=== PATIENT | male | born 1950 | race Caucasian/White ===

== ENCOUNTER 2024-11-20 07:43 | Emergency (ER) | payer MEDICAID, OTHER ==
--- OUTSIDE RECORDS SUMMARY | 2024-11-20 07:48 | XMS REPORT | Continuity of Care Document ---
Author Name Unknown Address [address] [facility] [address] [place] [address] [facility] [place] Address [address] [facility] [address] [place] [address] Care Team Providers Care Senior Art Director Name Role Phone ANDREWAUSTYN Uriostegui Attending Clinician Unavailable SABIHA SCHWAB Attending Clinician Unavailable LAB90 Attending Clinician Unavailable YOLIS ARRINGTON Attending Clinician FAUSTO Godfrey Attending Clinician Unavailable LANE CAMPOS Attending Clinician UnavailSOCRATES Rey Attending Clinician Unavailable JAVI MORRIS Attending Clinician UnavailCHAD Schneider Attending Clinician JORDAN Hester Attending Clinician UnavailMIRANDA Bone Attending Clinician Sugey Jim, HENOK Attending Clinician Unavailable HILTON VO Attending Clinician Unavailable Payers Payer Name Policy Type Policy Number Effective Date Expirati on Date Source [facility] 7 [id number] 2024 00:00:00 Problems Condition Name Condition Details Condition Category Status Onset Date Resolution Date Last Treatment Date Treating Clinician Comments Source Type 2 diabetes mellitus with diabetic neuropathy Type 2 diabetes mellitus with diabetic neuropathy Disease Active 07-31 00:00: 00 Victoria uriostegui Hormone replacemen t therapy (HRT) Hormone replacemen t therapy (HRT) Disease Active 07-30 00:00: 00 Victoria uriostegui Aortic atheroscle rosis Aortic atheroscle rosis Disease Active 04-18 00:00: 00 Victoria Carroll Externa gila Primary hypertensi on Primary hypertensi on Disease Active 04-18 00:00: 00 Victoria Carroll Externa gila Coronary artery disease Coronary artery disease Disease Active 04-15 00:00: 00 Victoria Carroll Externa gila 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 2 with diabetic mixed hyperlipid emia (multi HCC) Disease Active 03-27 00:00: 00 Victoria Carroll Externa gila Type 2 diabetes mellitus with product lister y disorder, without long-term current use of insulin Type 2 diabetes mellitus with product lister y disorder, without long-term current use of insulin Disease Active 03-27 00:00: 00 Victoria Carroll Externa gila DM type 2 with diabetic mixed hyperlipid emia DM type 2 with diabetic mixed hyperlipid emia Disease Active 03-23 00:00: 00 Victoria Carroll Externa gila Type 2 diabetes mellitus with diabetic peripheral angiopathy without gangrene, without long-term current use of insulin Type 2 diabetes mellitus with diabetic peripheral angiopathy without gangrene, without long-term current use of insulin Disease Active 03-23 00:00: 00 Victoria Carroll Externa gila Hyperlipid emia Hyperlipid emia Disease Active 03-23 00:00: 00 Victoria Carroll Externa gila Repeated falls Repeated falls Disease Active 03-22 00:00: 00 Victoria Carroll Externa gila PVD (periphera l vascular disease) PVD (periphera l vascular disease) Disease Active 03-15 00:00: 00 Victoria Nevarez - Externa gila Peripheral neuralgia Peripheral neuralgia Disease Active 03-14 00:00: 00 Victoria Nevarez - Externa gila [id number] 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 Problem [facility] [id number] Metabolic syndrome Problem [facility] [id number] Hypogonado tropic hypogonadi sm Problem [facility] [id number] Hypogonadi sm in male Problem [facility] 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 Disease Resolve d 03-23 00:00: 00 2024-11-19 00:00:00 2024-11-19 10:32:12 Victoria Cottonold - Externa l Elevated BP without diagnosis of hypertensi on Elevated BP without diagnosis of hypertensi on Disease Resolve d 03-23 00:00: 00 2024-11-19 00:00:00 2024-11-19 09:14:42 Victoria Cottonold - Externa l At risk for falls At risk for falls Disease Resolve d 03-22 00:00: 00 2023-07-31 00:00:00 2023-07-31 06:39:26 Victoria Cottonold - Externa l Social History Social Habit Start Date Stop Date Quantity Comments Source Gender identity Julianne Nevarez - External Sexual orientation Jordan Nevarez - External History of tobacco use Passive smoker Victoria beyer - External Sex Assigned At [facility] Alcoholic beverage intake 2024-11-19 00:00:00 2024-11-19 00:00:00 Lifetime non-drinker (finding) Victoria Nevarez - External Cigarettes smoked current (pack per day) - Reported 2023-07-31 00:00:00 2023-07-31 00:00:00 Victoria Nevarez - External Cigarette pack-years 2023-07-31 00:00:00 2023-07-31 00:00:00 Victoria Nevarez - External Alcohol intake 2022-12-18 00:00:00 2022-12-18 00:00:00 Lifetime non-drinker (finding) Victoria Nevarez - External History of Social function 2022-09-14 00:00:00 2022-09-14 00:00:00 Victoria Nevarez - External Sex 2022-01-31 11:33:56 2022-01-31 11:33:56 Male (finding) Victoria Nevarez - External Smoking Status Start Date Stop Date Source Ex-smoker 2023-07-31 00:00:00 2023-07-31 00:00:00 Jordan Daniels Medications Ordered Medication Name Filled Medication Name Start Date Stop Date Current Medication? Ordering Clinician Indication Dosage Frequency Signature (SIG) Comments Components Source Aspirin 81 MG oral Tablet Delayed Response Aspirin 81 MG oral Tablet Delayed Response 11-19 09:09: 12 Yes [id number] 81mg QD Take 1 tablet (81 mg total) by mouth daily. Victoria uriostegui Gabapentin 100 MG oral Capsule Gabapentin 100 MG oral Capsule 11-19 00:00: 00 Yes [id number] 9106 100mg Q.[id number] 3D Take 1 capsule (100 mg total) by mouth 3 times daily. Victoria uriostegui Aspirin 81 MG oral Tablet Delayed Response 07-30 08:13: 23 Yes [id number] 81mg QD Take 1 tablet (81 mg total) by mouth daily. Victoria uriostegui Lisinopril 5 MG oral Tablet Lisinopril 5 MG oral Tablet 07-02 00:00: 00 Yes [id number] 5mg QD Take 1 tablet by mouth once daily Victoria uriostegui Anastrozole 1 MG Anastrozole 1 MG 2023-02 00:00: 00 No Anastrozol e 1 MG Anastrozole 1 MG oral Tablet Anastrozole 1 MG oral Tablet 09-18 00:00: 00 Yes Victoria uriostegui CLOMIPHENE CITRATE OR 07-30 07:54: 45 07-30 00:00 :00 No 25mg Take 25 mg by mouth daily. Victoria uriostegui Atorvastati n Calcium 40 MG oral Tablet Atorvastati n Calcium 40 MG oral Tablet 07-30 00:00: 00 Yes [id number] 40mg QD Take 1 tablet (40 mg total) by mouth nightly. Victoria uriostegui CLOMIPHENE CITRATE OR 2022-02 09:16: 14 Yes 25mg Take 25 mg by mouth daily. Victoria uriostegui clomiPHENE Citrate 50 MG oral Tablet clomiPHENE Citrate 50 MG oral Tablet 11-23 00:00: 00 Yes in the morning. Victoria uriostegui Glucose Blood in vitro Strip 06-15 00:00: 00 Yes [id number] 1{each} 1 each by other route daily Check BS QID and as needed STRIPS NEED TO BE ONE TOUCH Victoria uriostegui Glucose Blood in vitro Strip Glucose Blood in vitro Strip 06-15 00:00: 00 11-19 00:00 :00 No [id number] 1{each} QD 1 each by other route daily Check BS QID and as needed STRIPS NEED TO BE ONE TOUCH Victoria uriostegui Atorvastati n Calcium 40 MG oral Tablet 06-15 00:00: 00 07-30 00:00 :00 No [id number] 40mg Take 1 tablet (40 mg total) by mouth nightly Victoria uriostegui Lisinopril 5 MG oral Tablet 05-16 00:00: 00 Yes [id number] 5mg QD Take 1 tablet (5 mg total) by mouth daily Victoria uriostegui Lisinopril 5 MG oral Tablet 04-17 00:00: 00 Yes [id number] Take 1 tablet by mouth once daily Victoria uriostegui Metformin HCl 500 MG oral Tablet 04-02 00:00: 00 04-18 00:00 :00 No [id number] 1000mg Take 2 tablets (1,000 mg total) by mouth in the morning and 2 tablets (1,000 mg total) in the evening. Take with meals. iVctoria uriostegui Tirzepatide (Mounjaro) 2.5 MG/0.5ML subcutaneou s Solution Pen-injecto r 03-21 00:00: 00 Yes [id number] 2.5mg Inject 0.5 mL (2.5 mg total) into the skin once a week Victoria uriostegui Lisinopril 5 MG oral Tablet 03-21 00:00: 00 Yes [id number] 5mg Take 1 tablet (5 mg total) by mouth daily Victoria uriostegui Atorvastati n Calcium 40 MG oral Tablet 03-21 00:00: 00 06-15 00:00 :00 No [id number] 40mg Take 1 tablet (40 mg total) by mouth nightly Victoria Nevarez - Externa l Glucose Blood in vitro Strip 03-14 00:00: 00 06-15 00:00 :00 No [id number] 1{each} 1 each by other route daily Check BS QID and as needed Victoria Nevarez - Externa l Vital Signs Vital Name Observation Time Observation Value Comments S ource Systolic blood pressure 2024-11-19 09:05:00 104 mm[Hg] Victoria Seybo ld - External Diastolic blood pressure 2024-11-19 09:05:00 78 mm[Hg] Victoria Seybo ld - External Heart rate 2024-11-19 09:05:00 74 /min Kelse y Seybold - External Body temperature 2024-11-19 09:05:00 37.17 Marybel Victoria Seybold - External Respiratory rate 2024-11-19 09:05:00 18 /min Victoria Seybold - External Body height 2024-11-19 09:05:00 174 cm Julianne ey Seybold - External Body weight 2024-11-19 09:05:00 99.791 kg Julianne ey Seybold - External BMI 2024-11-19 09:05:00 32.96 kg/m2 Julianne ey Seybold - External Oxygen saturation in Arterial blood by Pulse oximetry 2024-11-19 09:05:00 95 /min Victoria Sabillonybo ld - External Systolic blood pressure 2024-07-30 12:49:00 110 mm[Hg] Victoria Seybo ld - External Diastolic blood pressure 2024-07-30 12:49:00 70 mm[Hg] Victoria Seybo ld - External Heart rate 2024-07-30 12:49:00 74 /min Kelse y Seybold - External Body temperature 2024-07-30 12:49:00 36.22 Marybel Victoria Seybold - External Respiratory rate 2024-07-30 12:49:00 15 /min Victoria Seybold - External Body height 2024-07-30 12:49:00 174 cm Julianne ey Seybold - External Body weight 2024-07-30 12:49:00 98.431 kg Julianne ey Seybold - External BMI 2024-07-30 12:49:00 32.51 kg/m2 Julianne ey Seybold - External Oxygen saturation in Arterial blood by Pulse oximetry 2024-07-30 12:49:00 95 /min Victoria Sabillonybo ld - External height 2024-06-18 09:00:00 71 [in_i] Commo n [facility] weight 2024-06-18 09:00:00 223 [lb_av] Comm on [facility] bmi 2024-06-18 09:00:00 31[facility]1 [facility] blood pressure systolic 2024-06-18 09:00:00 168 mm[Hg] [facility] blood pressure diastolic 2024-06-18 09:00:00 86 mm[Hg] [facility] Systolic blood pressure 2024-01-30 13:51:00 118 mm[Hg] Victoria Seybo ld - External Diastolic blood pressure 2024-01-30 13:51:00 64 mm[Hg] Victoria Seybo ld - External Heart rate 2024-01-30 13:51:00 73 /min Kel y Seybold - External Body temperature 2024-01-30 13:51:00 36.39 Marybel Victoria Seybold - External Respiratory rate 2024-01-30 13:51:00 15 /min Victoria Seybold - External Body height 2024-01-30 13:51:00 174 cm Julianne ey Seybold - External Body weight 2024-01-30 13:51:00 95.255 kg Julianne ey Seybold - External BMI 2024-01-30 13:51:00 31.47 kg/m2 Julianne ey Seybold - External height 2023-12-19 08:15:00 71 [in_i] Commo n [facility] weight 2023-12-19 08:15:00 217.8 [lb_av] Co mmon [facility] temperature 2023-12-19 08:15:00 98.1 [degF] Com mon [facility] bmi 2023-12-19 08:15:00 30.37 kg/m2 Comm on [facility] oximetry 2023-12-19 08:15:00 97 % Commo n [facility] respiratory rate 2023-12-19 08:15:00 18 /min [facility] blood pressure systolic 2023-12-19 08:15:00 134 mm[Hg] [facility] blood pressure diastolic 2023-12-19 08:15:00 74 mm[Hg] [facility] height 2023-09-19 08:00:00 71 [in_i] Commo n [facility] weight 2023-09-19 08:00:00 217 [lb_av] Comm on [facility] temperature 2023-09-19 08:00:00 97.6 [degF] Com mon [facility] bmi 2023-09-19 08:00:00 30.26 kg/m2 Comm on [facility] oximetry 2023-09-19 08:00:00 93 % Commo n [facility] respiratory rate 2023-09-19 08:00:00 18 /min [facility] blood pressure systolic 2023-09-19 08:00:00 140 mm[Hg] [facility] blood pressure diastolic 2023-09-19 08:00:00 68 mm[Hg] [facility] Systolic blood pressure 2023-07-31 12:49:00 122 mm[Hg] Victoria Espana ld - External Diastolic blood pressure 2023-07-31 12:49:00 70 mm[Hg] Victoria Espana ld - External Heart rate 2023-07-31 12:49:00 70 /min Luis Nevarez - External Body temperature 2023-07-31 12:49:00 36.06 Marybel Victoria Sabillonybold - External Respiratory rate 2023-07-31 12:49:00 15 /min Victoria Seybold - External Body height 2023-07-31 12:49:00 174 cm Julianne ey Seybold - External Body weight 2023-07-31 12:49:00 93.895 kg Julianne ey Seybold - External BMI 2023-07-31 12:49:00 31.02 kg/m2 Julianne ey Seybold - External Systolic blood pressure 2023-06-19 12:51:00 115 mm[Hg] Victoria Seybo ld - External Diastolic blood pressure 2023-06-19 12:51:00 54 mm[Hg] Victoria Seybo ld - External Heart rate 2023-06-19 12:51:00 64 /min Kelse y Seybold - External Body temperature 2023-06-19 12:51:00 36.44 Marybel Victoria Seybold - External Respiratory rate 2023-06-19 12:51:00 15 /min Victoria Seybold - External Body height 2023-06-19 12:51:00 180.3 cm Julianne ey Seybold - External Body weight 2023-06-19 12:51:00 92.987 kg Julianne ey Seybold - External BMI 2023-06-19 12:51:00 28.59 kg/m2 Julianne ey Seybold - External height 2023-02-13 11:00:00 71 [in_i] Commo n [facility] weight 2023-02-13 11:00:00 208.9 [lb_av] Co mmon [facility] temperature 2023-02-13 11:00:00 98.1 [degF] Com mon [facility] bmi 2023-02-13 11:00:00 29.13 kg/m2 Comm on [facility] oximetry 2023-02-13 11:00:00 97 % Commo n [facility] respiratory rate 2023-02-13 11:00:00 18 /min [facility] blood pressure systolic 2023-02-13 11:00:00 122 mm[Hg] [facility] blood pressure diastolic 2023-02-13 11:00:00 68 mm[Hg] [facility] Systolic blood pressure 2022-12-18 13:54:00 124 mm[Hg] Victoria Seybo ld - External Diastolic blood pressure 2022-12-18 13:54:00 60 mm[Hg] Victoria Seybo ld - External Heart rate 2022-12-18 13:54:00 89 /min Kel y Seybold - External Body temperature 2022-12-18 13:54:00 36.06 Marybel Victoria Seybold - External Respiratory rate 2022-12-18 13:54:00 14 /min Victoria Seybold - External Body height 2022-12-18 13:54:00 180.3 cm Julianne ey Seybold - External Body weight 2022-12-18 13:54:00 90.719 kg Julianne ey Seybold - External BMI 2022-12-18 13:54:00 27.89 kg/m2 Julianne ey Seybold - External height 2022-11-23 09:15:00 71 [in_i] Commo n [facility] weight 2022-11-23 09:15:00 211.4 [lb_av] Co mmon [facility] temperature 2022-11-23 09:15:00 98.2 [degF] Com mon [facility] bmi 2022-11-23 09:15:00 29.48 kg/m2 Comm on [facility] oximetry 2022-11-23 09:15:00 97 % Commo n [facility] respiratory rate 2022-11-23 09:15:00 18 /min [facility] blood pressure systolic 2022-11-23 09:15:00 123 mm[Hg] [facility] blood pressure diastolic 2022-11-23 09:15:00 68 mm[Hg] [facility] Systolic blood pressure 2022-09-14 12:49:00 102 mm[Hg] Victoria Seybo ld - External Diastolic blood pressure 2022-09-14 12:49:00 72 mm[Hg] Victoria Seybo ld - External Heart rate 2022-09-14 12:49:00 75 /min Kelse y Seybold - External Body temperature 2022-09-14 12:49:00 35.33 Marybel Victoria Seybold - External Respiratory rate 2022-09-14 12:49:00 20 /min Victoria Seybold - External Body height 2022-09-14 12:49:00 180.3 cm Julianne ey Seybold - External Body weight 2022-09-14 12:49:00 95.255 kg Julianne ey Seybold - External BMI 2022-09-14 12:49:00 29.29 kg/m2 Julianne ey Seybold - External Oxygen saturation in Arterial blood by Pulse oximetry 2022-09-14 12:49:00 97 /min Victoria Seybo ld - External Systolic blood pressure 2022-06-15 14:33:00 108 mm[Hg] Victoria Seybo ld - External Diastolic blood pressure 2022-06-15 14:33:00 54 mm[Hg] Victoria Seybo ld - External Heart rate 2022-06-15 14:33:00 74 /min Kelse y Seybold - External Body temperature 2022-06-15 14:33:00 35.67 Marybel Victoria Seybold - External Respiratory rate 2022-06-15 14:33:00 15 /min Victoria Seybold - External Body height 2022-06-15 14:33:00 180.3 cm Julianne ey Seybold - External Body weight 2022-06-15 14:33:00 103.874 kg Julianne ey Seybold - External BMI 2022-06-15 14:33:00 31.94 kg/m2 Julianne ey Seybold - External Systolic blood pressure 2022-04-18 15:23:00 110 mm[Hg] Victoria Seybo ld - External Diastolic blood pressure 2022-04-18 15:23:00 52 mm[Hg] Victoria Seybo ld - External Heart rate 2022-04-18 15:23:00 74 /min Kelse y Seybold - External Body temperature 2022-04-18 15:23:00 36.28 Marybel Victoria Seybold - External Respiratory rate 2022-04-18 15:23:00 16 /min Victoria Seybold - External Body height 2022-04-18 15:23:00 180.3 cm Julianne ey Seybold - External Body weight 2022-04-18 15:23:00 108.41 kg Julianne ey Seybold - External BMI 2022-04-18 15:23:00 33.33 kg/m2 Julianne ey Seybold - External Systolic blood pressure 2022-03-21 19:50:00 140 mm[Hg] Victoria Seybo ld - External Diastolic blood pressure 2022-03-21 19:50:00 68 mm[Hg] Victoria Seybo ld - External Heart rate 2022-03-21 18:50:00 70 /min Kelse y Seybold - External Body temperature 2022-03-21 18:50:00 36.33 Marybel Victoria Seybold - External Respiratory rate 2022-03-21 18:50:00 16 /min Victoria Seybold - External Body height 2022-03-21 18:50:00 180.3 cm Julianne ey Seybold - External Body weight 2022-03-21 18:50:00 111.585 kg Julianne ey Seybold - External BMI 2022-03-21 18:50:00 34.31 kg/m2 Julianne ey Seybold - External Oxygen saturation in Arterial blood by Pulse oximetry 2022-03-21 18:50:00 99 /min Victoria Seybo ld - External Systolic blood pressure 2022-03-14 20:12:00 144 mm[Hg] Victoria Seybo ld - External Diastolic blood pressure 2022-03-14 20:12:00 68 mm[Hg] Victoria Seybo ld - External Heart rate 2022-03-14 20:12:00 80 /min Kelse y Seybold - External Body temperature 2022-03-14 20:12:00 36.28 Marybel Victoria Seybold - External Respiratory rate 2022-03-14 20:12:00 16 /min Victoria Seybold - External Body height 2022-03-14 20:12:00 180.3 cm Julianne ey Seybold - External Body weight 2022-03-14 20:12:00 111.131 kg Julianne ey Seybold - External BMI 2022-03-14 20:12:00 34.17 kg/m2 Julianne ey Seybold - External Encounters Start Date/Time End Date/Time Encounter Type Admission Type Attending [facility] Care Department Encounter ID Source 2023-04-25 09:17:01 Outpatient STLMLC STLC [id number] [facility] 2022-11-23 08:37:01 [facility] [id number] [facility] 2024-12-30 08:00:00 2024-12-30 08:00:00 Outpatient AUSTYN CR [id number] [facility] 2024-12-28 08:00:00 2024-12-28 08:00:00 Outpatient SABIHA SCHWAB [id number] [facility] 2024-11-19 09:00:00 2024-11-19 09:00:00 Outpatient SABIHA SCHWAB [id number] [facility] 2024-11-19 00:00:00 2024-11-19 00:00:00 Outpatient SABIHA SCHWAB [id number] [facility] 2024-07-30 09:15:00 2024-07-30 09:15:00 Outpatient LAB90 VICTORIA AWAN [id number] [facility] 2024-07-30 08:00:00 2024-07-30 08:00:00 Outpatient AUSTYN CR [id number] [facility] 2024-06-30 00:00:00 2024-06-30 00:00:00 Outpatient AUSTYN CR [id number] [facility] 2024-06-24 00:00:00 2024-06-24 00:00:00 (TEL) STLMLC STLC [id number] [facility] 2024-06-18 00:00:00 2024-06-18 00:00:00 OFFICE VISIT ESTAB PT LEVEL 4 STLMLC STLC [id number] [facility] 2024-06-03 08:00:00 2024-06-03 08:00:00 Outpatient LAB90 [facility]CTOR[facility] AWAN [id number] [facility] 2024-05-27 00:00:00 2024-05-27 00:00:00 Outpatient YOLIS ARRINGTON VICTORIA AWAN [id number] [facility] 2024-05-08 14:00:00 2024-05-08 14:00:00 Outpatient ANDREWGila AUSTYN AWAN [id number] [facility] 2024-05-05 08:00:00 2024-05-05 08:00:00 Outpatient SHAYE AUSTYN AWAN [id number] [facility] 2024-02-06 00:00:00 2024-02-06 00:00:00 Outpatient AURY ARCEDAVID AWAN [id number] [facility] 2024-02-06 00:00:00 2024-02-06 00:00:00 Outpatient NICCIAURY SCOTTDAVID AWAN [id number] [facility] 2024-01-30 08:45:00 2024-01-30 08:45:00 Outpatient LAB90 [facility] [id number] [facility]24-[facility]-30 08:00:00 2024-01-30 08:00:00 Outpatient SHAYE AUSTYN AWAN [id number] [facility] 2023-12-20 00:00:00 2023-12-20 00:00:[address] CAMPOS [id number] [facility] 2023-12-19 00:00:00 2023-12-19 00:00:00 OFFICE VISIT ESTAB PT LEVEL 3 STLMLC STLMLC [id number] [facility] 2023-12-04 07:50:00 2023-12-04 07:50:00 Outpatient LAB90 VICTORIA AWAN [id number] [facility] 2023-09-24 00:00:00 2023-09-24 00:00:[address] CAMPOS [id number] [facility] 2023-09-19 00:00:00 2023-09-19 00:00:00 OFFICE VISIT ESTAB PT LEVEL 4 STLMLC STLMLC [id number] [facility] 2023-07-31 09:15:00 2023-07-31 09:15:00 Outpatient LAB90 VICTORIA AWAN [id number] [facility] 2023-07-31 08:00:00 2023-07-31 08:00:00 Outpatient SHAYE AUSTYN AWAN [id number] [facility] 2023-07-11 11:00:00 2023-07-11 11:00:00 Outpatient VICTORIA AWAN [id number] [facility] 2023-06-19 08:45:00 2023-06-19 08:45:00 Outpatient LAB90 VICTORIA AWAN [id number] [facility] 2023-06-19 08:00:00 2023-06-19 08:00:00 Outpatient SHAYE AUSTYN AWAN [id number] [facility] 2023-05-31 00:00:00 2023-05-31 00:00:00 Outpatient SOCRATES GARNICA [id number] [facility] 2023-02-21 00:00:00 2023-02-21 00:00:00 Outpatient JAVI MORRIS [id number] [facility] 2023-02-13 00:00:00 2023-02-13 00:00:00 OFFICE VISIT ESTAB PT LEVEL 3 STLMLC STLMLC [id number] [facility] 2023-02-06 11:15:00 2023-02-06 11:15:00 Outpatient LAB90 VICTORIA AWAN [id number] [facility] 2023-02-06 00:00:00 2023-02-06 00:00:00 Outpatient SHAYE AUSTYN AWAN [id number] [facility] 2023-02-04 08:10:00 2023-02-04 08:10:00 Outpatient LAB90 VICTORIA AWAN [id number] [facility] 2023-02-04 00:00:00 2023-02-04 00:00:00 Outpatient AUSTYN CR [id number] [facility] 2023-01-30 00:00:00 2023-01-30 00:00:00 Outpatient PREZASOCRATES Chamorro VICTORIA AWAN [id number] [facility] 2023-01-18 00:00:00 2023-01-18 00:00:00 Outpatient ANDREWAUSTYN Uriostegui VICTORIA AWAN [id number] [facility] 2022-12-20 00:00:00 2022-12-20 00:00:00 Outpatient AUSTYN CR [id number] [facility] 2022-12-18 09:45:00 2022-12-18 09:45:00 Outpatient LAB90 VICTORIA AWAN [id number] [facility] 2022-12-18 09:00:00 2022-12-18 09:00:00 Outpatient AUSTYN CR [id number] [facility] 2022-12-17 08:00:00 2022-12-17 08:00:00 Outpatient AUSTYN CR [id number] [facility] 2022-12-04 09:30:00 2022-12-04 09:30:00 Outpatient LAB90 VICTORIA AWAN [id number] [facility] 2022-11-29 00:00:00 2022-11-29 00:00:00 (TEL) STLMLC STLMLC [id number] [facility] 2022-11-26 00:00:00 2022-11-26 00:00:00 Outpatient AUSTYN CR [id number] [facility] 2022-11-23 00:00:00 2022-11-23 00:00:00 OFFICE VISIT NEW PT LEVEL 3 STLMLC STLMLC [id number] [facility] 2022-09-26 08:40:00 2022-09-26 08:40:00 Outpatient LAB90 VICTORIA AWAN [id number] [facility] [facility] 2022-09-26 00:00:00 2022-09-26 00:00:00 Outpatient AUSTYN CR [id number] [facility] 2022-09-14 08:50:00 2022-09-14 08:50:00 Outpatient LAB90 VICTORIA AWAN [id number] Victoria [facility]kar[facility] 2022-09-14 08:00:00 2022-09-14 08:00:00 Outpatient HUNDGila, AUSTYN AWAN [id number] [facility] 2022-06-15 10:45:00 2022-06-15 10:45:00 Outpatient LAB90 VICTORIA AWAN [id number] Victoria Sabillonybkarissa 2022-06-15 10:00:00 2022-06-15 10:00:00 Outpatient HUNDL, AUSTYN AWAN [id number] Victoria ybkarissa 2022-06-06 09:10:00 2022-06-06 09:10:00 Outpatient CHAD SPRAGUE [id number] [facility] ybkarissa 2022-05-15 00:00:00 2022-05-15 00:00:00 Outpatient HUNDGila, AUSTYN AWAN [id number] [facility] ybkarissa 2022-05-11 00:00:00 2022-05-11 00:00:00 Outpatient METZ, JORDAN VICTORIA AWAN [id number] Victoria y[facility]karissa 2022-05-01 09:10:00 2022-05-01 09:10:00 Outpatient MIRANDA KHAN [id number] [facility] ybkarissa 2022-05-01 08:45:00 2022-05-01 08:45:00 Outpatient 39 DWAINEKELLOGG [id number] Victoria ybkarissa 2022-04-26 10:10:00 2022-04-26 10:10:00 Outpatient MIRANDA KHAN [id number] [facility] 2022-04-18 09:30:00 2022-04-18 09:30:00 Outpatient HUNDGila, AUSTYN AWAN [id number] Victoria Seybold 2022-04-17 00:00:00 2022-04-17 00:00:00 Outpatient HUNDGila, AUSTYN AWAN [id number] Victoria Seybold 2022-04-16 00:00:00 2022-04-16 00:00:00 Outpatient SOCRATES GARNICA [id number] Victoria Seybold 2022-04-15 00:00:00 2022-04-15 00:00:00 Outpatient HUNDGila, AUSTYN VICTORIA AWAN [id number] Victoria [facility]kar[facility] 2022-04-15 00:00:00 2022-04-15 00:00:00 Outpatient HUNDL, AUSTYN AWAN [id number] [facility] ybkarissa 2022-04-13 10:00:00 2022-04-13 10:00:00 Outpatient VICTORIA AWAN [id number] Victoria ybkarissa 2022-04-13 09:15:00 2022-04-13 09:15:00 Outpatient VICTORIA AWAN [id number] Victoria ybold 2022-04-13 08:30:00 2022-04-13 08:30:00 Outpatient VICTORIA AWAN [id number] Victoria ybkarissa 2022-04-13 00:00:00 2022-04-13 00:00:00 Outpatient HUNDGila, AUSTYN AWAN [id number] [facility] 2022-03-28 08:00:00 2022-03-28 08:00:00 Outpatient HUNDL, AUSTYN AWAN [id number] Victoria Seybold 2022-03-26 00:00:00 2022-03-26 00:00:00 Outpatient HUNDGila, AUSTYN VICTORIA AWAN [id number] Victoria Seybold 2022-03-21 13:00:00 2022-03-21 13:00:00 Outpatient HUNDL, AUSTYN AWAN [id number] Victoria Seybold 2022-03-16 00:00:00 2022-03-16 00:00:00 Outpatient PUTTAPPA, HILTON AWAN [id number] Victoria Seybold 2022-03-15 00:00:00 2022-03-15 00:00:00 Outpatient AUSTYN CR [id number] Victoria Seybold 2022-03-14 15:45:00 2022-03-14 15:45:00 Outpatient LAB90 VICTORIA AWAN [id number] Victoria Seybold 2022-03-14 14:30:00 2022-03-14 14:30:00 Outpatient AUSTYN CRSEY [id number] Victoria [facility] 2022-03-14 00:00:00 2022-03-14 00:00:00 Outpatient AUSTYN CR VICTORIA [id number] Victoria [facility] Notes Date/Time Note Provider Source Referral ID Status Reason Start Date Expiration Date Visits Requested Visits Authorized [id number] Authorized Service Not Available at Clinic 11/19/2024 02/17/2025 1 1 * Consultation (Routine) - Pending Review Specialty Diagnoses / Procedures Referred By Contact Referred To Contact Radiology-Vascular & Interventional Radiology Diagnoses PVD (peripheral vascular disease) Claudication in peripheral vascular disease Procedures OFFICE/OUTPATIENT [facility] 60 MINUTES Sabiha Schwab PA-C [address] [place] [address] Phone: tel: fax: Cristobal Charles MD [address] [place] [phone] Phone: tel: fax: Referral ID Status Reason Start Date Expiration Date Visits Requested Visits Authorized [id number] Pending Review Service Not Available at Clinic 11/19/2024 02/17/2025 1 1 Christel [id number] 10:33:15* VictoriaGeri [id number] 10:33:15 VictoriaGeri [id number] 10:33:15* Sabiha Schwab PA-C - 11/19/2024 9:13 AM CDT Images from the original note were not included. HPI: Xiomara Javier is a 74 year old male is here for Thigh Pain (Right thigh pain started 3 days ago.) . Hypertension: Patient is currently taking Lisinopril 5 mg daily Home BP measurements are well controlled BP Readings from Last 2 Encounters: 11/19/24 104/78 07/30/24 110/70 PVD/CAD: Previosly referred to cardiology- had not made appt due to being asymtpomatic. Now having claudication of the left leg especially when walking. Lower extremity swelling or joint pain. He does have history of diabetic neuropathy which has been stable last 5 years. VL LOWER EXT ARTERIAL DOPPLER/CAPRICE (BILATERAL) 04/13/2022 11:07 AM Order #: [id number] Performing Department: [facility] DIAGNOSIS: PVD (peripheral vascular disease) [I73.9 (ICD-10-CM)] Hyperlipidemia, unspecified hyperlipidemia type [E78.5 (ICD-10-CM)] Reason for Exam: [id number] Result Narrative: [facility] [address] [place] [address], [address] [place] [address] Vascular Report - Final Result Result Narrative: Name: XIOMARA JAVIER Age: 71 Tech: W Ayush [facility] #: [id number] Sex: M Wt: 246 lb ACC #: [id number] : 1950 Date/Time: 04/13/2022 / 9:45:13 AM Order #: [id number]. Physician: [id number] AUSTYN CR cc: Study Details: Arterial Doppler Leg / Simple CAPRICE. Indication: PVD (peripheral vascular disease) (HCC) [I73.9] Hyperlipidemia, unspecified hyperlipidemia type [E78.5] History: Diabetes mellitus, Hyperlipidemia, Peripheral vascular disease and previous smoker * * * * * I M P R E S S I O N * * * * * RIGHT LOWER EXTREMITY: There is diffuse, calcified plaque visualized in the arteries with normal waveforms. The peroneal artery was not well visualized, however, there are elevated velocities detected. The resting CAPRICE is DP 0.74 (moderate) / PT 0.90 (normal). The great toe pressure is 88 mmHg, TBI 0.81 (normal). LEFT LOWER EXTREMITY: There is diffuse, calcified plaque visualized in the arteries withmonophasic waveforms at the dorsalis pedis artery. The resting CAPRICE is DP 0.59 (moderate)/ PT 0.88 (mild). The great toe pressure is 79 mmHg, TBI 0.73 (normal). US AORTA WITH DOPPLER 04/13/2022 9:43 AM Order #: [id number] Performing Department: [facility] DIAGNOSIS: Screening for AAA (aortic abdominal aneurysm) [Z13.6 (ICD-10-CM)] Result Narrative: Clinical history: Screening for AAA (aortic abdominal aneurysm) [Z13.6]. Comparison: CT Chest 04/13/2022. Technique: Grayscale and duplex Doppler ultrasound of the abdominal aorta. Findings: The abdominal aorta shows normal caliber. Mild calcified and noncalcified atherosclerotic plaque of the mid and distal abdominal aorta. In cross-section, it measures 2.9 x 2.9 cm proximally,2.6 x 2.6 cm in the midportion, and 2.4 x 2.4 cm distally. The right proximal common iliac artery measures 1.2 x 1.0 cm in cross-section. The left proximal common iliac artery measures 1.2 x 1.2 cm in cross section. Spectral duplex Doppler images show normal waveform and antegrade flow in the abdominal aorta. Impression: 1. Mild atherosclerotic disease. No abdominal aortic aneurysm seen. Hyperlipidemia: Taking Atorvastatin- not taking consistently. Latest Ref Rng & Units :39 AM LIPID LAB RESULTS CHOLESTEROL, TOTAL 100 - 199 mg/dL 188 TRIGLYCERIDES 0 - 149 mg/dL 152 HDL CHOLESTEROL >39 mg/dL 35 LDL CHOL CALC (NIH) 0 - 99 mg/dL 126 Diabetes mellitus:Patient is currently controlled without medication. Diabetic neuropathy- he has minimal feeling in both of his feet. He has had this for many years.. He reports he has never tried gabapentin before. Last A1C was Results for orders placed or performed in visit on 07/30/24 HEMOGLOBIN (HB) A1C WITH EAG Collection Time: 07/30/24 8:39 AM Result Value Ref Range HEMOGLOBIN A1C 6.8 (High) 4.8 - 5.6 % ESTIM. AVG GLU (EAG) 148 mg/dL Hormone replacement therapy with urology.Dr. Campos. Currently on anastrozole 1 mg, clomiphene 50 mg daily in the morning. Current medications:Current Medications[1] Allergies:Patient has no known allergies. I have reviewed the past Medical, Family, and Social history. Review of Systems: All systems are negative, except those pertinent items mentioned in the HPI. Review of SystemsConstitutional: Negative for activity change. Eyes: Negative for visual disturbance. Respiratory: Negative for chest tightness, shortness of breath and wheezing. Cardiovascular: Negative for chest pain, palpitations and leg swelling. Musculoskeletal: Negative for arthralgias and joint swelling. Claudication of the left leg when walking Neurological: Negative for syncope, light-headedness and headaches. Physical Exam: BP 104/78 (Side: Left Arm, Position: SITTING, Cuff Size: Medium Adult) | Pulse74 | Temp 98.9 ?F (37.2 ?C) (Tympanic) | Resp 18 | Ht 5' 8.5" (1.74 m) | Wt 220 lb (99.8 kg) | SpO2 95% | BMI 32.96 kg/m? Physical ExamConstitutional: General: He is not in acute distress. Appearance: Normal appearance. HENT: Head: Normocephalic and atraumatic. Right Ear: External ear normal. Left Ear: External ear normal. Nose: Nose normal. Eyes: Conjunctiva/sclera: Conjunctivae normal. Cardiovascular: Rate and Rhythm: Normal rate. Pulses: Normal pulses. Heart sounds: No murmur heard. Pulmonary: Effort: Pulmonary effort is normal. No respiratory distress. Breath sounds: No stridor. No wheezing, rhonchi or rales. Musculoskeletal: General: No swelling or tenderness. Comments: No joint pain, claudication of the right leg with walking. Neurological: General: No focal deficit present. Mental Status: He is alert. Psychiatric: Mood and Affect: Mood normal. Behavior: Behavior normal. Thought Content: Thought content normal. Judgment: Judgment normal. Assessment and Plan: Xiomara was seen today for thigh pain. Diagnoses and all orders for this visit: PVD (peripheral vascular disease)- REFERRAL TO VASCULAR SURGERY - EXTERNAL Claudication in peripheral vascular disease- REFERRAL TO VASCULAR SURGERY - EXTERNAL Symptomatic with claudication. Referral placed to vascular surgery for further evaluation and management. Continue daily baby aspirin. Recommended consistent use of atorvastatin for elevated cholesterol. Recheck lab at follow-up in 2 months. Primary hypertensionControlled. Continue lisinopril 5 mg daily. Recommend to check blood pressure daily as needed. Recommend to maintain blood pressure less than 130/80. If blood pressure remains above 140/90 consistently, additional medication and/or further adjustment in medication may be required. Hold blood pressure medication if blood pressure systolic less than 110. Coronary artery disease, unspecified vessel or lesion type, unspecified whether angina present, unspecified whether [place] or transplanted heart - REFERRAL TO CARDIOLOGY- EXTERNAL Referral placed to cardiology for further evaluation and management. Aortic atherosclerosis- REFERRAL TO CARDIOLOGY- EXTERNAL Referral placed to cardiology for further evaluation and management. Type 2 diabetes mellitus with diabetic neuropathy, without long-term currentuse of insulin (multi HCC) - Gabapentin 100 MG oral Capsule; Take 1 capsule (100 mg total) by mouth 3 times daily. Gabapentin 100 mg up to 3 times daily as needed for neuropathic pain. Diabetes well-controlled with diet. Will recheck A1c at next follow-up. Return for keep follow up scheduled. This document was completed using voice recognition software. This can produce measuring machine tender errors that can at times significantly distort words and phrases. Please interpret any aspect of the note that is nonsensical in light of this fact. KANDICE Dupree-CSP: Dr. Socrates Garnica, DO [facility] [1]Current Outpatient Medications Medication Sig Dispense Refill Anastrozole 1 MG oral Tablet Aspirin 81 MG oral Tablet Delayed Response Take 1 tablet (81 mg total) by mouth daily. clomiPHENE Citrate 50 MG oral Tablet in the morning. Gabapentin 100 MG oral Capsule Take 1 capsule (100 mg total) by mouth 3 times daily. 90 capsule 0 Lisinopril 5 MG oral Tablet Take 1 tablet by mouth once daily (Patient taking differently: Take 1 tablet (5 mg total) by mouth daily.) 90 tablet 3 Atorvastatin Calcium 40 MG oral Tablet Take 1 tablet (40 mg total) by mouth nightly. (Patient not taking: Reported on 11/19/2024) 90 tablet 3 No current facility-administered medications for this visit. T [facility]2025-09-25 10:33:15Upcoming Encounters Scheduled Referrals Name Type Priority Associated Diagnoses Orde r Schedule REFERRAL TO VASCULAR SURGERY - EXTERNAL Referral Routine PVD (peripheral vascular disease) Claudication in peripheral vascular disease Ordered: 11/19/2024 REFERRAL TO CARDIOLOGY- EXTERNAL Referral Routine Coronary artery disease, unspecified vessel or lesion type, unspecified whether angina present, unspecified whether [place] or transplanted heart Aortic atherosclerosis Ordered: 11/19/2024 Health Maintenance Due Date Last Done Comments COLONOSCOPY 1950 CT Colonography 1950 Cologuard 1950 FIT Tests 1950 Sigmoidoscopy 1950 Lung Cancer Screening 04/13/2023 04/13/2022 Diabetes: Hemoglobin A1C 01/29/2025 025, 01/30/2024, 07/31/2023, Additional history exists Creatinine Level (Kidney Function Test) 06/03/2025 06/03/2024, 12/04/2023, 07/31/2023, Additional history exists Diabetes: Urine Protein Screening 07/30/2025 07/30/2024, 01/30/2024, 02/04/2023, Additional history exists Lipid Panel 07/30/2025 07/30/2024, 06/2023, 02/04/2023, Additional history exists Physical Exam 07/30/2025 07/30/2024, 0 06/2024, 07/31/2023, Additional history exists Influenza Vaccines (#1) 2025 Post poned from 10/26/2024 (Patient Refused) Pneumococcal Vaccine: 50+ Years (1 of 2 - PCV) 11/19/2025 Postponed from 1969 (Patient Refused) RSV Vaccines (1 - Risk 60-74 years 1-dose series) 11/19/2025 Postponed fro m 2010 (Patient Refused) Tdap Vaccines 11/19/2025 Postponed from 1969 (Patient Refused) Zoster Vaccines (1 of 2) 11/19/2025 Pos tponed from 1969 (Patient Refused) Diabetes: Retinopathy Screening Discontinued 03/29/2022 (Previously completed) AAA SCREEN Completed 04/13/2022 Colorectal Cancer Screening Discontinued [facility]2025-09-25 10:33:15 Diagnosis PVD (peripheral vascular disease) - Primary Peripheral vascular disease, unspecified Claudication in peripheral vascular disease Peripheral vascular disease, unspecified Primary hypertension Unspecified essential hypertension Coronary artery disease, uns pecified vessel or lesion type, unspecified whether angina present, unspecified whether [place] or transplanted heart Aortic atherosclerosis Atherosclerosis of aorta Type 2 diabetes mellitus wit h diabetic neuropathy, without long-term current use of insulin (multi HCC) [facility]2025-09-25 10:33:15 [place] [id number] 09:09:18 Chief Complaint Patient presents with Thigh Pain Right thigh pain started 3 days ago. Katarzyna Fontenot LVN T [place] [id number] 07:52:36 Chief Complaint Patient presents with Physical Patient is fasting. No additional concerns Shania Chapa MA T [place] [id number] 07:55:52 Chief Complaint Patient presents with Follow-up 6 month follow up Shania Chapa MA II [facility]2024-06-05 07:54:53 Chief Complaint Patient presents with Physical Patient is fasting. No other issues to discuss Shania Chapa MA II T [place] [id number] 07:54:06 Chief Complaint Patient presents with Diabetes 6 month diabetic follow up Shania Chapa MA II [place] [id number] 07:53:45 Patient here for a follow up visit [facility]
--- NOTE | 2024-11-20 08:43 | RAD REPORT ---
EXAMINATION: US RIGHT LOWER EXTREMITY VENOUS DOPPLER CLINICAL INDICATION: PAIN RIGHT TECHNIQUE: Complete bilateral duplex sonography of the RIGHT lower extremity veins was performed. The examination included compression for vein patency, color Doppler imaging and flow augmentation in response to distal compression of the distal external iliac, common femoral, femoral, popliteal, tibi al, and great and small saphenous veins. COMPARISON: No prior exam. FINDINGS: Duplex sonography testing of the veins of the RIGHT lower extremity was performed. Color flow imaging shows all veins to be compressible with [id number] color filling. Pulsatile and phasic flow is present within all lower extremity deep and superficial veins examined. IMPRESSION: There is no deep vein or superficial vein thrombosis.
--- NOTE | 2024-11-20 09:00 | RAD REPORT ---
EXAM: CT PELVIS WITHOUT CONTRAST HISTORY: PAIN COMPARISON: None TECHNIQUE: Multiple contiguous axial images were obtained and a CT of the pelvis with IV contrast. Sa gittal and coronal reformats were performed. One or more of the following dose reduction techniques were used: Automated exposure control, adjustment of the mA and/or kV according to patient size, and/ or iterative reconstruction. FINDINGS: No pelvic fractures are seen. No fracture of either proximal femur is seen. Mild degenerati ve changes bilateral hips. The visualized intrapelvic structures are unremarkable. The soft tissues surrounding the pelvis are unremarkable. Small to moderate fat-containing bilateral inguinal hernias. IMPRESSION: No acute finding.
--- NOTE | 2024-11-20 09:02 | RAD REPORT ---
EXAMINATION: CT LUMBAR SPINE WITHOUT CONTRAST CLINICAL INDICATION: Male, 74 years old. PAIN TECHNIQUE: Axial CT images were obtained through the lumbar spine in soft tissue and bone windows wit hout intravenous contrast. Coronal and Sagittal reformatted images were created from the data set. One or more of the following dose reduction techniques were used: Automated exposure control, adjustm ent of the mA and/ or kV according to patient size, and/or iterative reconstruction. Unless otherwise specified, incidental findings do not require dedicated imaging follow-up. COMPARISON: No prior exam. FINDINGS: For purposes of this dictation, it is assumed that there are 5 non rib-bearing lumbar type vertebrae, and the most caudal fully segmented lumbar vertebra is labeled L5. ALIGNMENT: Moderate degenerative levoscoliosis of the lumbar spine. BONES: No significant soft tissue abnormalities. No aggressive osseous lesions. DISCS: Multilevel degenerative spondylosis L2-3 and L3-4 most severe with posterior disc and osteophy te resulting in significant canal stenosis these levels. SOFT TISSUE: No soft tissue abnormalities. Aortic atherosclerosis. IMPRESSION: No acute lumbar spine abnormalities. Significant degenerative levoscoliosis lumbar spine with probable central canal stenosis at L2-3 and L3-4.
[2024-11-20 09:36] LABS: Absolute Lymphocytes (CBC) 1.5 K/uL (0.7-4.9); Hematocrit 45.8 % (39.6-49.0); Hemoglobin 15.6 g/dL (13.6-17.9); MCH 31.3 pg (27.0-35.0); MCHC 34.0 g/dL (32.0-36.0); MCV 91.8 fL (80-100); MPV 7.4 fL (7.6-11.3); Nucleated RBC Absolute Count 0.0 (0-0); Nucleated Red Blood Cells % 0.1 % (0-0); RBC Red Blood Cell Count 4.99 M/uL (4.33-5.43); White Blood Count 10.00 thou/uL (4.3-10.9)
[2024-11-20 09:53] LABS: ALT/SGPT 32.0 U/L (16-61); AST/SGOT 15.0 U/L (15-37); Albumin 4.0 g/dL (3.4-5.0); Albumin/Globulin Ratio 1.3 (1.1-1.8); Alkaline Phosphatase 51.0 U/L (45-117); Anion Gap 10.1 mEq/L (5.0-15.0); BUN Blood Urea Nitrogen 20.0 mg/dL (7-18); Globulin 3.2 g/dL (2.3-3.5); Glucose Level 155.0 mg/dL (74-106); Potassium 4.1 mEq/L (3.5-5.1)
[2024-11-20] MEDS ORDERED: KETOROLAC 30 MG/ML INJ ONE (09:53)
[2024-11-20] MEDS ORDERED: ONDANSETRON 4 MG/2 ML VIAL ONE (09:53)
[2024-11-20] MEDS ORDERED: MORPHINE 4 MG/ML SYR ONE (09:54)
[2024-11-20] MEDS ORDERED: NA CHLORIDE 0.9% 1,000 ML ONE (09:54)
--- NOTE | 2024-11-20 12:19 | EDPHYS ---
Physician Documentation [facility] Name: Delroy Javier Age: 74 yrs Sex: Male : 1950 Arrival Date: 11/20/2024 Time: 07:43 Bed 16 Private MD: BRITTANY Physician Chan Wynn HPI: 11/20 12:14 This 74 yrs old Male presents to ER via Wheelchair with complaints of Leg navin Pain, Hip Pain. 12:14 The patient presents with decreased range of motion, pain, that is acute. The navin complaints affect the left hip and left upper thigh. Context: resulted from an unknown cause, the patient can fully bear weight, must have assistance, from family, from a friend, Problem is a result from a previous injury: No. Onset: The symptoms/episode began/occurred 3 day(s) ago. Modifying factors: The symptoms are alleviated by remaining still, the symptoms are aggravated by movement. Associated signs and symptoms: The patient has no apparent associated signs or symptoms. Severity of symptoms: At their worst the symptoms were moderate, in the emergency department the symptoms are unchanged. The patient has experienced similar episodes in the past, several times. Historical: - Allergies: 08:06 No Known Allergies; iw - Home Meds: 08:08 clomiphene citrate 50 mg oral tablet [Active]; iw - PMHx: 08:07 Hypertensive disorder; iw - PSHx: 08:07 cataracts; Tonsillectomy; iw - Immunization history:: Adult Immunizations. - Infectious Disease History:: Denies. - Social history:: Smoking status: Patient/guardian denies using tobacco. - Family history:: not pertinent. ROS: 12:14 Constitutional: Negative for fever, chills, and weight loss, Eyes: Negative for injury, navin pain, redness, and discharge, ENT: Negative for injury, pain, and discharge, Neck: Negative for injury, pain, and swelling, Cardiovascular: Negative for chest pain, palpitations, and edema, Respiratory: Negative for shortness of breath, cough, wheezing, and pleuritic chest pain, Abdomen/GI: Negative for abdominal pain, nausea, vomiting, diarrhea, and constipation, Back: Negative for injury and pain, : Negative for injury, bleeding, discharge, and swelling, Skin: Negative for injury, rash, and discoloration, Neuro: Negative for headache, weakness, numbness, tingling, and seizure, Psych: Negative for depression, anxiety, suicide ideation, homicidal ideation, and hallucinations, Allergy/Immunology: Negative for hives, rash, and allergies, Endocrine: Negative for neck swelling, polydipsia, polyuria, polyphagia, and marked weight changes, Hematologic/Lymphatic: Negative for swollen nodes, abnormal bleeding, and unusual bruising, 12:14 Back: Positive for decreased range of motion, pain at rest, pain with movement, radiated pain, of the lumbar area and left low back, 12:14 : Positive for Exam: 12:14 Constitutional: This is a well developed, well nourished patient who is awake, alert, navin and in no acute distress. Head/Face: Normocephalic, atraumatic. Eyes: Pupils equal round and reactive to light, extra-ocular motions intact. Lids and lashes normal. Conjunctiva and sclera are non-icteric and not injected. Cornea within normal limits. Periorbital areas with no swelling, redness, or edema. ENT: Nares patent. No nasal discharge, no septal abnormalities noted. Tympanic membranes are normal and external auditory canals are clear. Oropharynx with no redness, swelling, or masses, exudates, or evidence of obstruction, uvula midline. Mucous membranes moist. Neck: Trachea midline, no thyromegaly or masses palpated, and no cervical lymphadenopathy. Supple, full range of motion without nuchal rigidity, or vertebral point tenderness. No Meningismus. Chest/axilla: Normal chest wall appearance and motion. Nontender with no deformity. No lesions are appreciated. Cardiovascular: Regular rate and rhythm with a normal S1 and S2. No gallops, murmurs, or rubs. Normal PMI, no JVD. No pulse deficits. Respiratory: Lungs have equal breath sounds bilaterally, clear to auscultation and percussion. No rales, rhonchi or wheezes noted. No increased work of breathing, no retractions or nasal flaring. Abdomen/GI: Soft, non-tender, with normal bowel sounds. No distension or tympany. No guarding or rebound. No evidence of tenderness throughout. Male : Normal genitalia with no discharge or lesions. Skin: Warm, dry with normal turgor. Normal color with no rashes, no lesions, and no evidence of cellulitis. Neuro: Awake and alert, GCS 15, oriented to person, place, time, and situation. Cranial nerves II-XII grossly intact. Motor strength 5/5 in all extremities. Sensory grossly intact. Cerebellar exam normal. Normal gait. Psych: Awake, alert, with orientation to person, place and time. Behavior, mood, and affect are within normal limits. 12:14 Back: pain, that is moderate, of the lumbar area and left low back, 12:14 Musculoskeletal/extremity: Extremities: decreased ROM, pain, ROM: limited active range of motion due to pain, limited passive range of motion due to pain, in the left hip, left gluteal fold, left inner thigh and left upper thigh, Vital Signs: 08:04 BP 125 / 71; Pulse 80; Resp 16; Temp 98.1; Pulse Ox 95% on R/A; Weight 99.79 kg; Height iw 5 ft. 9 in. ; Pain 10/10; 08:04 Body Mass Index 32.49 (99.79 kg, 175.26 cm) iw 08:04 Pain Scale: Adult iw MDM: 07:47 Medical Screening Exam initiated navin 12:17 Differential diagnosis: closed fracture, contusion, abrasion, tendonitis. Data [facility] reviewed: vital signs, nurses notes, lab test result(s), radiologic studies, CT scan. Consideration of Admission/Observation Escalation of care including admission/observation considered. I considered the following discharge prescriptions or medication management in the emergency department Medications were administered in the Emergency Department. See MAR. Independent interpretation of the following test(s) in the Emergency Department CT Scan: My interpretation is CT LUMBAR, CT PELVIS. Test considered but Not performed: MRI: NO MRI L SPINE. 11/20 08:09 Order name: CBC with Diff; Complete Time: 12:04 [facility] 11/20 08:09 Order name: CMP; Complete Time: 12:04 [facility] 11/20 08:09 Order name: CT Lumbar Spine Wo Con; Complete Time: 12:04 [facility] 11/20 08:09 Order name: CT Pelvis wo Cont; Complete Time: 12:04 [facility] 11/20 08:09 Order name: US Extremity Venous Unilateral Ltd; Complete Time: 12:04 [facility] Administered Medications: 10:02 Drug: morphine IVP or IV 4 mg IVP once over 4 mins Route: IVP; Infused Over: 4 mins; hb Site: right antecubital; 11:00 Follow up: Response: No adverse reaction hb 10:03 Drug: NS 0.9% IV 500 ml 500 ml IV at 1 bolus once; to be given as a bolus over 30 hb minutes Volume: 500 ml; Route: IV; Rate: 1 bolus; Site: right antecubital; 10:35 Follow up: IV Status: Completed infusion; IV Intake: 500ml hb 10:03 Drug: Ketorolac IVP 15 mg IVP once Route: IVP; Site: right antecubital; hb 12:44 Follow up: Response: No adverse reaction hb 10:03 Drug: Ondansetron IVP 4 mg IVP once; over 2 minutes Route: IVP; Site: right antecubital;hb 11:00 Follow up: Response: No adverse reaction hb 12:35 Drug: Decadron - Dexamethasone IVP 10 mg IVP once Route: IVP; Site: right antecubital; hb 12:44 Follow up: Response: Medication administered at discharge. hb 12:35 Drug: Diazepam PO 10 mg PO once Route: PO; hb 12:44 Follow up: Response: Medication administered at discharge. hb Disposition Summary: 11/20/24 12:19 Discharge Ordered Notes: Location: Home navin Problem: new navin Symptoms: have improved navin Condition: Stable navin Diagnosis - Pain in left hip navin - Pain in hip navin - Low back pain navin - Strain of muscle, fascia and tendon of abdomen, lower back and pelvis navin - Scoliosis, unspecified navin - Sciatica, left side navin Followup: navin - With: Private Physician - When: 2 - 3 days - Reason: Recheck today's complaints, Continuance of care, Re-evaluation by your physician Followup: navin - With: Lane Thornton MD - When: 2 - 3 days - Reason: Recheck today's complaints, Re-evaluation by your physician Discharge Instructions: - Discharge Summary Sheet navin - Joint Pain navin - Arthritis navin - Acute Back Pain, Adult navin - Musculoskeletal Pain navin - Sciatica navin - Scoliosis navin - How to Use Cold Therapy, [id number] navin - Hip Pain navin - Arthritis, [id number] navin - Sciatica, [id number] navin Forms: - Medication Reconciliation Form navin - Antibiotic Education navin - Prescription Opioid Use navin - Patient Portal Instructions navin - Leadership Thank You Letter navin Prescriptions: - diclofenac sodium 50 mg Oral tablet, delayed release (enteric coated) - take 1 tablet ORAL route 2 times per day; 20 tablet; Refills: 0, Product navin Selection Permitted - methocarbamol 750 mg Oral tablet - take 1 tablet ORAL route 4 times per day; 28 tablet; Refills: 0, Product navin Selection Permitted - Tylenol-Codeine #3 300mg-30mg Oral tablet - take 2 tablets ORAL route every 6 hours As needed; 20 tablet; Refills: 0, [facility] Product Selection Permitted - Dexamethasone 4mg Oral tablet - take 1 tablet ORAL route daily for 4 days; 4 tablet; Refills: 0, Product navin Selection Permitted Signatures: Dispatcher [employer] Chan Jules MD MD cha Williams, Irene, RN RN Sofi Figueroa RN RN Corrections: (The following items were deleted from the chart) 08:09 08:09 Extremity Venous Uni [email or web address] ordered. EDRI EDMS
--- NOTE | 2024-11-20 12:19 | ER ---
Nurse's Notes [facility] Name: Delroy Javier Age: 74 yrs Sex: Male : 1950 Arrival Date: 11/20/2024 Time: 07:43 Bed 16 Private MD: Diagnosis: Pain in left hip;Pain in hip;Low back pain;Strain of muscle, fascia and tendon of abdomen, lower back and pelvis;Scoliosis, unspecified;Sciatica, left side Presentation: 11/20 08:04 Chief complaint: Patient states: right thigh pain X 1 week, pain radiated into butt and iw hip last night , unable to bear weight, no injury , was seen at PCP yesterday and they gave him some medicine but it's not helping. Coronavirus screen: At this time, the client does not indicate any symptoms associated with coronavirus-19. Ebola Screen: No symptoms or risks identified at this time. Initial Sepsis Screen: Does the patient meet any 2 criteria? No. Patient's initial sepsis screen is negative. Does the patient have a suspected source of infection? No. Patient's initial sepsis screen is negative. Risk Assessment: Do you want to hurt yourself or someone else? Patient reports no desire to harm self or others. Onset of symptoms was November 13, 2024. 08:04 Method Of Arrival: Wheelchair iw 08:04 Acuity: [place] 3 iw Historical: - Allergies: 08:06 No Known Allergies; iw - Home Meds: 08:08 clomiphene citrate 50 mg oral tablet [Active]; iw - PMHx: 08:07 Hypertensive disorder; iw - PSHx: 08:07 cataracts; Tonsillectomy; iw - Immunization history:: Adult Immunizations. - Infectious Disease History:: Denies. - Social history:: Smoking status: Patient/guardian denies using tobacco. - Family history:: not pertinent. Screenin:00 [facility] ED Fall Risk Assessment (Adult) History of falling in the last 3 months, hb including since admission No falls in past 3 months (0 pts) Confusion or Disorientation No (0 pts) Intoxicated or Sedated No (0 pts) Impaired Gait No (0 pts) Mobility Assist Device Used No (0 pt) Altered Elimination No (0 pt) Score/Fall Risk Level 0 - 2 = Low Risk Oriented to surroundings, Maintained a safe environment, Educated pt \T\ family on fall prevention, incl call for assistance when getting out of bed. Abuse screen: Denies threats or abuse. Denies injuries from another. Nutritional screening: No deficits noted. Tuberculosis screening: No symptoms or risk factors identified. Assessment: 09:59 General: Appears in no apparent distress. Behavior is calm, cooperative. Pain: Pain hb currently is 9 out of 10 on a pain scale. Neuro: Level of Consciousness is awake, alert, obeys commands, Oriented to person, place, time, situation. Cardiovascular: Patient's skin is warm and dry. Respiratory: Respiratory effort is even, unlabored, Respiratory pattern is regular, symmetrical. GI: No signs and/or symptoms were reported involving the gastrointestinal system. : No signs and/or symptoms were reported regarding the genitourinary system. EENT: No signs and/or symptoms were reported regarding the EENT system. Derm: Skin is pink, warm \T\ dry. Musculoskeletal: Reports severe low back pain that radiates to left hip. Vital Signs: 08:04 BP 125 / 71; Pulse 80; Resp 16; Temp 98.1; Pulse Ox 95% on R/A; Weight 99.79 kg; Height iw 5 ft. 9 in. ; Pain 10/10; 08:04 Body Mass Index 32.49 (99.79 kg, 175.26 cm) iw 08:04 Pain Scale: Adult iw ED Course: 07:46 Patient arrived in ED. mr 07:47 Chan Wynn MD is Attending Physician. navin 08:06 Triage completed. iw 08:06 Arm band placed on. iw 08:41 US Extremity Venous Unilateral Ltd In Process Unspecified. EDMS 08:47 CT Lumbar Spine Wo Con In Process Unspecified. EDMS 08:47 CT Pelvis wo Cont In Process Unspecified. EDMS 09:32 CMP Sent. em1 09:32 CBC with Diff Sent. em1 09:32 Initial lab(s) drawn, by me, sent to lab. Inserted saline lock: 20 gauge in right em1 forearm, using aseptic technique. Blood collected. Flushed with 10 mL NS. 12:18 Lane Thornton MD is Referral Physician. navin 12:43 Sofi Figueroa RN is Primary Nurse. hb Administered Medications: 10:02 Drug: morphine IVP or IV 4 mg IVP once over 4 mins Route: IVP; Infused Over: 4 mins; hb Site: right antecubital; 11:00 Follow up: Response: No adverse reaction hb 10:03 Drug: NS 0.9% IV 500 ml 500 ml IV at 1 bolus once; to be given as a bolus over 30 hb minutes Volume: 500 ml; Route: IV; Rate: 1 bolus; Site: right antecubital; 10:35 Follow up: IV Status: Completed infusion; IV Intake: 500ml hb 10:03 Drug: Ketorolac IVP 15 mg IVP once Route: IVP; Site: right antecubital; hb 12:44 Follow up: Response: No adverse reaction hb 10:03 Drug: Ondansetron IVP 4 mg IVP once; over 2 minutes Route: IVP; Site: right antecubital;hb 11:00 Follow up: Response: No adverse reaction hb 12:35 Drug: Decadron - Dexamethasone IVP 10 mg IVP once Route: IVP; Site: right antecubital; hb 12:44 Follow up: Response: Medication administered at discharge. hb 12:35 Drug: Diazepam PO 10 mg PO once Route: PO; hb 12:44 Follow up: Response: Medication administered at discharge. hb Medication: 10:01 VIS not applicable for this client. hb Intake: 10:35 IV: 500ml; Total: 500ml. hb Outcome: 12:19 Discharge ordered by . navin 13:00 Patient left the ED. hb Signatures: Dispatcher [employer] EDMS Chan Wynn MD MD cha Rivera, Mary, Reg Reg mr Destiny Wilkinson RN RN iw Martinez, Eric em1 Sofi Figueroa RN RN hb Corrections: (The following items were deleted from the chart) 08:07 08:04 BP 125 / 71; Pulse 80bpm; Resp 16bpm; Pulse Ox 95% RA; Temp 98.1F; Pain 12/04, iw Adult; iw
[2024-11-20] MEDS ORDERED: DIAZEPAM 5 MG TABLET ONE (12:29)
[2024-11-20 13:05] VITALS: BP 125/71; TEMP 98.1; O2SAT 95
== END 2024-11-20 13:00 | disposition home or self-care (01) ==
LOC: ER 07:43
DX: S39.013A Strain of muscle, fascia and tendon of pelvis, initial encounter (principal); S39.012A Strain of muscle, fascia and tendon of lower back, initial encounter; M54.32 Sciatica, left side; M41.9 Scoliosis, unspecified
CPT/HCPCS: 96361; 85025; 36415; 80053; 72131; 72192; 93971; 96375; 96374; 99284; J1100; J2405; J7030; J1885